=== PATIENT | female | born 1990 | race Hispanic/Latino ===

== ENCOUNTER 2018-05-24 06:24 | Observation (INO) | payer OTHER ==
[2018-05-18 11:26] LABS: Basophils % (Auto) 0.6 % (0.0-1.8); Eosinophils # (Auto) 0.1 K/mm3 (0.0-0.4); Eosinophils % (Auto) 1.1 % (0.0-4.3); Hematocrit 43.4 % (30.3-42.9); Hemoglobin 14.8 gm/dl (10.1-14.3); Lymphocytes # (Auto) 1.8 K/mm3 (1.2-5.4); Lymphocytes % (Auto) 30.7 % (13.4-35.0); Mean Corpuscular HGB Conc 34 % (30-34); Mean Corpuscular Hemoglobin 33 pg (28-32); Mean Corpuscular Volume 97 fl (79-97); Monocytes # (Auto) 0.6 K/mm3 (0.0-0.8); Monocytes % (Auto) 9.9 % (0.0-7.3); Platelet Count 217 K/mm3 (140-440); Red Blood Count 4.47 M/mm3 (3.65-5.03); Red Cell Distribution Width 12.6 % (13.2-15.2)
[~2018-05-24 06:24] MED LIST: LACTATED RINGERS 1,000 ML IV SCH; VERSED IV NR
[2018-05-24] MEDS ORDERED: ZOFRAN IV PRN ×2 (07:27→12:05)
[2018-05-24] MEDS ORDERED: DEMEROL IV PRN (07:27)
[2018-05-24] MEDS ORDERED: DILAUDID IV PRN (07:27)
[2018-05-24] MEDS ORDERED: TORADOL IV PRN (07:27)
[2018-05-24] MEDS ORDERED: NARCAN 0.4 MG/1 ML IV PRN (07:27)
--- NOTE | 2018-05-24 07:27 | Anesthesia Consultation ---
Anesthesia Consult and Med Hx Date of service: 05/24/18 - Airway Anesthetic Teeth Evaluation: Good ROM Head & Neck: Adequate Mental/Hyoid Distance: Adequate Mallampati Class: Class II Intubation Access Assessment: Good - Pulmonary Exam CTA: Yes - Cardiac Exam Cardiac Exam: No Murmur - Pre-Operative Health Status ASA Pre-Surgery Classification: ASA1 Proposed Anesthetic Plan: General - Pulmonary Hx Smoking: Yes (smoked, now vapes) - Central Nervous System Hx Psychiatric Problems: Yes - Other Systems Hx Alcohol Use: Yes (occas) Hx Cancer: No
--- NOTE | 2018-05-24 07:27 | Anesthesia Day of Surgery ---
Anesthesia Day of Surgery - Day of Surgery Patient Examined: Yes Patient H&P Reviewed: Yes Patient is NPO: Yes
[2018-05-24] MEDS ORDERED: TRANSDERM-SCOP TD NR ×2 (07:29→07:30)
--- NOTE | 2018-05-24 07:38 | History and Physical Report ---
History of Present Illness Date of examination: 05/24/18 Date of admission: 05/24/2018 Chief complaint: I have pain and endometriosis History of present illness: Patient is a 28 year old who presents for definitive therapy for her endometriosis and chronic pelvic pain Past History Past Medical History: other (endometriosis) Past Surgical History: [employer]IN[employer]/uterine surgery (ex lap. tubal ligaion) Social history: Medications and Allergies Allergies Allergy/AdvReac Type Severity Reaction Status Date / Time No Known Allergies Allergy Verified 05/23/18 21:43 Home Medications Medication Instructions Recorded Confirmed Last Taken Type ARIPiprazole [Abilify] 20 mg PO DAILY 05/09/18 05/09/18 Unknown History buPROPion [Wellbutrin] 200 mg PO DAILY 05/09/18 05/09/18 Unknown History Active Meds: Active Medications Hydromorphone HCl (Dilaudid) 0.5 mg IV Q10MIN PRN PRN Reason: Pain , Severe (7-10) Hydromorphone HCl (Dilaudid) 0.25 mg IV Q10MIN PRN PRN Reason: Pain, Moderate (4-6) Lactated Ringer's (Lactated Ringers) 1,000 mls @ 100 mls/hr IV DIRECT JEFE Last Admin: 05/24/18 06:50 Dose: 100 mls/hr Ketorolac Tromethamine (Toradol) 30 mg IV ONCE PRN PRN Reason: Pain, Moderate (4-6) Meperidine HCl (Demerol) 25 mg IV ONCE PRN PRN Reason: Shivering Midazolam HCl (Versed) 2 mg IV PREOP NR Stop: 05/24/18 23:59 Last Admin: 05/24/18 06:55 Dose: 2 mg Naloxone HCl (Narcan 0.4 Mg/1 Ml) 0.1 mg IV Q2MIN PRN PRN Reason: Res Rate </= 8 or 02 SAT < 92% Ondansetron HCl (Zofran) 4 mg IV ONCE PRN PRN Reason: Nausea And Vomiting Scopolamine (Transderm-Scop) 1 each TD PREOP NR Stop: 05/24/18 08:00 Last Admin: 05/24/18 06:55 Dose: 1 each Scopolamine (Transderm-Scop) 1 each TD ONCE ONE Stop: 05/24/18 07:30 Review of Systems All systems: negative Genitourinary: vaginal bleeding, pelvic pain - Vital Signs Vital signs: Vital Signs Temp Pulse Resp BP 98.3 F 60 16 112/80 05/18/18 10:25 05/18/18 10:25 05/18/18 10:25 05/18/18 10:25 Temp Pulse Resp BP Pulse Ox 98.3 F 60 16 112/80 05/18/18 10:25 05/18/18 10:25 05/18/18 10:25 05/18/18 10:25 - Physical Exam Breasts: Positive: normal Cardiovascular: Regular rate, Normal S1, Normal S2 Lungs: Positive: Clear to auscultation, Normal air movement Abdomen: Positive: normal appearance, soft, normal bowel sounds. Negative: distention, tenderness Vulva: both: normal Vagina: Positive: normal moisture. Negative: discharge Cervix: Negative: lesion, discharge Uterus: Positive: normal size, normal contour Adnexa: both: normal Anus/Rectum: Positive: normal perianal skin, heme negative. Negative: rectal mass, hemorrhoids Extremities: Deep Tendon Reflex Grade: Normal +2 Results Result Diagrams: 05/18/18 10:30 All other labs normal. Assessment and Plan 28 year old female here for definitive therapy for chronic pelvic pain and endometriosis. Plan to proceed with Total lap hysterectomy.
[2018-05-24] MEDS ORDERED: NACL 0.9% IR ONE ×2 (07:45)
[2018-05-24] MEDS ORDERED: ANCEF/STERILE WATER 2 GM/20 ML 2 GM/20 ML SYRINGE IV NR (08:00)
--- NOTE | 2018-05-24 10:14 | Post Operative Note ---
Pre-op diagnosis: Endometriosis Post-op diagnosis: same Findings: Normal sized uterus, but boggy and with increased vascularity Normal ovaries Procedure: Total Laparoscopic Hysterectomy Anesthesia: MICAH Surgeon: BRANT LORENZO Estimated blood loss: other (200) Pathology: list (uterus and tubes) Specimen disposition: to lab Condition: stable Disposition: PACU
[2018-05-24] MEDS: DILAUDID IV PRN ×2 (10:30→10:45)
--- NOTE | 2018-05-24 11:03 | Post Anesthesia Evaluation ---
- Post Anesthesia Evaluation Patient Participated: Yes Airway Patent: Yes Stable Respiratory Function: Yes Nausea/Vomiting: No Temp > 96.8F: Yes Pain Manageable: Yes Adequeate Hydration: Yes Anesthesia Complications: No Block Receding Appropriately: Not Applicable (TAP block) Patient on Ventilator: No
--- NOTE | 2018-05-24 11:51 | Operative Report ---
Operative Report Operative Report: Preoperative diagnosis: Pelvic pain and menorrhagia Postoperative diagnosis: Same Procedure: Total Laparoscopic hysterectomy Surgeon: Sofi Holcomb M.D. Asst.:[ ] Anesthesia: Gen. EBL: 200 mL IV fluids: 900 mL Urine output: 300 mL clear Findings: Normal size but boggy uterus with increased vascularity as well as evidence of endometriosis implants in the pelvis and posterior cul-de-sac. Specimen: Uterus, fallopian tubes, and cervix Complications: None The patient was properly identified as herself. She was then taken to the OR with IV running and in place. She was given general anesthesia without difficulty. She was placed in the dorsal lithotomy position with her arms tucked. She was then prepped and draped in the normal sterile fashion. Attention was turned to the patient's vagina. Torres catheter was inserted. The speculum was then placed into the patient's vagina. Cervix was visualized and grasped with a double-tooth tenaculum. Gently sounded to approximately 8 cm in length. [facility] uterine manipulator was then inserted into the uterus and the balloon was inflated. Speculum was then removed. The surgeon's gloves were changed and attention was turned to the patient's abdomen. A small incision was made in the patient's umbilicus through which a 5 mL trocar was placed. The laparoscope confirmed intra-abdominal placement. The abdomen was then insufflated with CO2 gas to approximately 5 mmHg. Both fallopian tubes were identified. Under direct visualization a second trocar was placed in the incision and left lower quadrant. A third trocar was placed through an incision in the right lower quadrant as well. Attention was turned to the left adnexa and the broad ligament underlying the fallopian tube was cauterized and transected to the level of the uterine fundus. Following this the round ligament was then cauterized and transected on the left as well as was the utero -ovarian ligament. Bladder flap was created in the left side to just beyond the midline with sharp and blunt dissection. Attention was then turned to the patient's right side. In a similar fashion the broad ligament underneath the tube was cauterized and transected as well as the round ligament and the utero- ovarian ligament. At this point the bladder flap was completed connecting both sides of the adnexa. The uterine arteries were skeletonized bilaterally and were both cauterized and transected. Once the arteries were completely transected and the uterus began to melecio the colpotomy incision was initiated. The Cup as a guide an incision was made circumferentially around the cervix. Once completely incise the abdomen was deflated and attention was then turned to the patient's vagina. The manipulator and the uterus removed from the vagina. It was then handed off to pathology. The edges of the vaginal cuff were grasped with long Allis clamps. The cuff was then closed in a running locked fashion with 2-0 Vicryl. At this point surgeon's gloves were changes interest turned back to the abdomen. The abdomen was reinsufflated and all areas were evaluated. Some minor oozing was addressed once inside. At this point there was excellent hemostasis. The abdomen was then deflated and all instruments were removed. The incisions were then closed with 4-0 Monocryl. There were also injected with quarter percent Marcaine. She tolerated procedure well and she was then awakened recovery in stable condition. The sponge needle and instrument count correct 2.
[2018-05-24] MEDS ORDERED: PHENERGAN PR PRN (12:05)
[2018-05-24] MEDS ORDERED: MORPHINE IV PRN (12:05)
[2018-05-24] MEDS ORDERED: WELLBUTRIN XL PO ONE (14:00)
[2018-05-24] MEDS: TORADOL IV SCH (16:40)
[2018-05-24] MEDS: PERCOCET 5/325 PO PRN (20:58)
[2018-05-24] MEDS: COLACE PO SCH (21:00)
[2018-05-24] MEDS: ABILIFY PO SCH ×2 (21:10→21:11)
[2018-05-24] MEDS: D5LR 1,000 ML IV SCH (21:12)
[2018-05-25] MEDS: TORADOL IV SCH ×4 (01:14→16:00)
[2018-05-25] MEDS: PERCOCET 5/325 PO PRN ×3 (03:56→13:53)
[2018-05-25 04:07] LABS: Hematocrit 32.4 % (30.3-42.9); Hemoglobin 11.4 gm/dl (10.1-14.3)
[2018-05-25] MEDS: D5LR 1,000 ML IV SCH (04:40)
[2018-05-25] MEDS: ABILIFY PO SCH (10:04)
[2018-05-25] MEDS: COLACE PO SCH (10:04)
--- NOTE | 2018-05-25 12:35 | Progress Note ---
Assessment and Plan POD 1 s/p tlh. Doing well. Patient ready for discharge on today Subjective - Subjective Date of service: 05/25/18 Interval history: Patient is a 28 year old who presents for definitive therapy for her endometriosis and chronic pelvic pain Patient reports: appetite normal, voiding normally, pain well controlled, ambulating normally Objective - Vital Signs Latest vital signs: Vital Signs Temp Pulse Resp BP BP BP Pulse Ox 05/25/18 08:51 98.3 F 58 L 20 96/60 87/55 98 05/25/18 08:43 16 05/25/18 04:40 98.5 F 62 18 89/54 99 05/25/18 03:56 18 05/25/18 01:15 98.2 F 70 20 92/62 99 05/24/18 21:07 98.0 F 53 L 18 91/57 99 05/24/18 20:58 18 05/24/18 18:00 98.3 F 68 18 100/67 Intake and Output 05/24/18 05/25/18 05/25/18 22:59 06:59 14:59 Intake Total 360 933.333 Output Total 200 300 Balance 160 933.333 -300 Intake: IV 933.333 D5lr 1,000 ml @ 125 mls/ 933.333 hr IV DIRECT JEFE Rx#: [id number] Oral 360 Output: Urine 200 300 Indwelling Catheter 200 Void 0 300 Other: Total, Intake Amount 360 Total, Output Amount 200 300 Voiding Method Toilet Indwelling Catheter - Exam Breasts: Present: deferred Lungs: Present: Clear to auscultation, Normal air movement Abdomen: Present: normal appearance, soft, normal bowel sounds Incision: Present: normal, intact
--- NOTE | 2018-05-25 12:37 | Discharge Summary ---
Providers - Providers Date of Admission: 05/24/18 09:54 Date of discharge: 05/25/18 Attending physician: BRANT LORENZO Hospitalization Reason for admission: other Procedure: other ([facility]) Procedure details: see op report Incision: normal, dry, intact Discharge diagnosis: other Hospital course: unremarkable Condition at discharge: Good Disposition: DC-01 TO HOME OR SELFCARE Plan - Discharge Medications Prescriptions: Ibuprofen [Motrin] 800 mg PO Q8HR PRN #40 tablet PRN Reason: Pain, Mild (1-3) Oxycodone HCl/Acetaminophen [Percocet 7.5/325 mg] 1 each PO Q6HR PRN #50 tablet PRN Reason: Pain Simethicone 180 mg PO BID #60 capsule - Provider Discharge Summary Activity: routine, no sex for 6 weeks, no heavy lifting 4 weeks Diet: routine Instructions: routine Additional instructions: [] Smoking cessation referral if applicable(refer to patient education folder for contact #) [] Refer to [facility] Booklet Call your doctor immediately for: * Fever > 100.5 * Heavy vaginal bleeding ( >1 pad per hour) * Severe persistent headache * Shortness of breath * Reddened, hot, painful area to leg or breast * Drainage or odor from incision. * Keep incision clean and dry at all times and follow doctor's instructions regarding bathing/showering - Follow up plan Follow up: BRANT LORENZO MD [Staff Physician] - 14 Days Forms: [facility] Discharge Summary
[2018-05-25 17:44] VITALS: BP 101/64
== END 2018-05-25 17:20 | disposition home or self-care (01) ==
LOC: OR 06:24 → OB 09:54
PROVIDERS: ADMIT Obstetrics & Gynecology; ATTEND Obstetrics & Gynecology
DX: N80.0 Endometriosis of uterus (principal)
CPT/HCPCS: 36415; 58552; 64450; 84703; 85014; 85018; 85025; 86850; 86900; 86901; 88307; 96374; 96375; 96376; A4217; G0378; J1885; J7120; J7121